=== PATIENT | male | born 1955 | race Caucasian/White ===

== ENCOUNTER 2020-11-04 10:15 | Outpatient (CLI) | payer OTHER | END 2020-11-04 10:16 | disposition home or self-care (01) | LOC: CSHULT 10:15 | PROVIDERS: ATTEND Otolaryngology Plastic Surgery within the Head & Neck | DX: E04.1 Nontoxic single thyroid nodule (principal) | CPT/HCPCS: 76536 ==

== ENCOUNTER 2021-11-18 14:02 | Outpatient (CLI) | payer OTHER | END 2021-11-18 14:03 | disposition home or self-care (01) | LOC: CSHULT 14:02 | PROVIDERS: ATTEND Otolaryngology Plastic Surgery within the Head & Neck | DX: E04.1 Nontoxic single thyroid nodule (principal) | CPT/HCPCS: 76536 ==